=== PATIENT | female | born 1940 | race Caucasian/White ===

== ENCOUNTER → 2020-03-29 15:11 | Outpatient (CLI) | payer MEDICARE, SELFPAY ==
--- NOTE | 2020-03-29 15:26 | XR_ITS ---
PROCEDURE: XR HIP LT 2-3V W/PELVIS CLINICAL INDICATION: L HIP PAIN COMPARISON: No exams were available for comparison FINDINGS: There are moderate to severe severe osteoarthritic changes of the left hip with sub chondral cystic changes the femoral head and neck with osteophytes the femoral head and acetabulum. There is diffuse vascular calcification. 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
--- NOTE | 2020-03-29 15:26 | XR_ITS ---
PROCEDURE: XR KNEE LT 3V CLINICAL INDICATION: ACUTE PAIN OF L KNEE COMPARISON: XR FEMUR LT 2V from 03/29/2020 FINDINGS: Mild osteoarthritic changes involve all 3 compartments. There is generalized osteopenia. There is mild lateral subluxation of the tibia of 5 mm. On the AP view of the knee there is an extra bony density along the medial femoral condyle which may be due to an area ununited ossification of the lateral aspect of the patella. There is diffuse vascular calcification. IMPRESSION: Mild osteoarthritic changes Dictated by: Nelson Abreu MD 03/29/2020 16:45 Electronically signed by Nelson Abreu MD in [place] 03/29/2020 16:45
--- NOTE | 2020-03-29 15:27 | XR_ITS ---
PROCEDURE: XR LUMBAR SPINE MIN 4V CLINICAL INDICATION: ACUTE MIDLINE LOW BACK PAIN W/O SCIATICA COMPARISON: No exams were available for comparison FINDINGS: There is degenerative disc disease at L3-L4 L4-5 and L5-S1. No fracture or dislocation. Moderate facet arthritic changes are present from L2-S1. Incidental note is made of a large gallstone measuring 3 cm. A 5 mm stone overlies the lower pole left kidney. There is generalized osteopenia and generalized vascular calcification. IMPRESSION: 1. Lumbar spondylosis with degenerative disc disease and facet arthritic change 2. Cholelithiasis and left nephrolithiasis Dictated by: Nelson Abreu MD 03/29/2020 16:49 Electronically signed by Nelson Abreu MD in [place] 03/29/2020 16:49
--- NOTE | 2020-03-29 15:28 | XR_ITS ---
PROCEDURE: XR FEMUR LT 2V CLINICAL INDICATION: L LEG PAIN COMPARISON: No exams were available for comparison FINDINGS: There are severe osteoarthritic changes of the left hip with subarticular cystic changes of the femoral head and acetabulum and femoral neck with prominent osteophytes at the hip joint and diffuse vascular calcification. No acute fracture or dislocation. No lytic or blastic change. IMPRESSION: Severe osteoarthritic change of the left hip Dictated by: Nelson Abreu MD 03/29/2020 17:20 Electronically signed by Nelson Abreu MD in [place] 03/29/2020 17:20
== END ==
PROVIDERS: PCP Nurse Practitioner Family; Visit Provider Nurse Practitioner Family
DX: M25.562 Pain in left knee (principal); M25.552 Pain in left hip; M54.5 Low back pain; M79.605 Pain in left leg
CPT/HCPCS: 72110; 73502; 73552; 73562